=== PATIENT | male | born 1960 | race Two or more races ===

== ENCOUNTER 2021-09-18 12:48 | Emergency (ER) | payer BC, MEDICAID ==
[~2021-09-18] VITALS: Ht 180.3 cm; Wt 113.4 kg
[~2021-09-18 12:48] MED LIST: ASPI1TAB20 PO; BENA20TA70 PO; DICY10CA PO; DOCU100T15 PO; GABA-339 PO; HYDR50TA69 PO; IBUP800T27 PO; INSUINJ18 SC; PROM25TA5 PO; SIMV10TA84 PO; TRAM50TA2 PO; TRAZ-181 PO
[2021-09-18] MEDS ORDERED: ONDANSETRON HCL 4 MG/2 ML VIAL BC ONE (13:15)
[2021-09-18] MEDS ORDERED: SODIUM CHLORIDE 0.9% 1,000 ML IV ONE (13:15)
[2021-09-18 14:37] LABS: Eosinophils # (auto) 0 10 ^3/uL (0-0.8); Eosinophils % (auto) 0.9 % (0.0-7.0); Lymphocytes # (auto) 1.4 10 ^3/uL (0.4-5.4)
[2021-09-18 14:38] LABS: Basophils # (auto) 0.1 10 ^3/uL (0-0.2); Basophils % (auto) 1.1 % (0.0-2.0); Hematocrit 51.6 % (41.0-53.0); Hemoglobin 17.9 g/dL (13.5-17.5); Lymphocytes % (auto) 27.7 % (10.0-50.0); Mean Corpuscular Hemoglobin 30.8 pg (28.0-32.0); Mean Corpuscular Hgb Conc. 34.7 g/dL (32.0-36.0); Mean Corpuscular Volume 88.8 fL (80.0-100.0); Monocytes # (auto) 0.7 10 ^3/uL (0-1.3); Monocytes % (auto) 13.9 % (0.0-12.0); Neutrophils # (auto) 2.8 10 ^3/uL (1.6-8.6); Neutrophils % (auto) 56.4 % (37.0-80.0); Nucleated Red Blood Cells % 0.3 %; Red Blood Cells 5.81 10^6/uL (4.5-5.90)
[2021-09-18 15:01] LABS: Albumin 3.9 g/dL (3.4-5.0); Calcium 8.6 mg/dL (8.5-10.1); Potassium 3.4 mmol/L (3.5-5.1)
[2021-09-18 15:10] LABS: BUN/Creatinine Ratio 14.4; Bilirubin, Total 0.6 mg/dL (0.2-1.0); Total Protein 7.7 g/dL (6.4-8.2)
[2021-09-18] MEDS ORDERED: metroNIDAZOLE 500MG/100ML 100 ML IV ONE (16:30)
[2021-09-18] MEDS ORDERED: fentaNYL CITRATE 100 MCG/2 ML VL IV ONE ×2 (16:30→17:45)
[2021-09-18 17:24] LABS: Lactic Acid w/Reflex 2.4 mmol/L (0.4-2.0)
[2021-09-18] MEDS ORDERED: MORPHINE SULFATE INJECTION 2 MG/ML SYRG IV ONE (18:15)
[2021-09-18] MEDS ORDERED: HYDROcodone-ACET 5/325MG TAB PO ONE (18:15)
[2021-09-18] MEDS ORDERED: ONDA-144 PO (18:46)
[2021-09-18] MEDS ORDERED: METR500T PO (18:46)
[2021-09-18 19:40] VITALS: BP 168/99
== END 2021-09-18 19:43 | disposition home or self-care (01) ==
LOC: EDBD 12:48 → ER 12:48
DX: U07.1 COVID-19 (principal); K52.9 Noninfective gastroenteritis and colitis, unspecified; E11.9 Type 2 diabetes mellitus without complications; I10 Essential (primary) hypertension; Z90.49 Acquired absence of other specified parts of digestive tract; Z79.4 Long term (current) use of insulin; Z79.899 Other long term (current) drug therapy; Z88.6 Allergy status to analgesic agent
CPT/HCPCS: 36415; 71045; 74176; 80053; 83605; 83690; 84484; 85025; 85048; 87045; 87426; 87427; 87493; 93005; 96361; 96365; 96375; 99285; J2270; J2405; J3010; J3490; J7030